=== PATIENT | male | born 1960 | race Caucasian/White ===

== ENCOUNTER 2023-04-05 09:27 | Outpatient (REF) | payer BC, SELFPAY ==
--- OUTSIDE RECORDS SUMMARY | 2023-04-05 09:32 | XMS_ITS | Patient Health Record ---
Author Name Unknown Organization [facility] Address [address] [facility] [address] [place], [place] [address] Care Team Providers Care Hand Reamer Name Role Phone ALMAZ PARSONS Primary Care Provider [phone] SINGH, RASHIDA Stewart [phone] ALLERGIES Allergen (clinical drug ingredient) Drug/Non Drug Allergy documented on EMR Reaction Allergy Type Onset Date Status No Known Drug Allergy Unknown Drug Allergy Active No Known Food Allergy Unknown Drug Allergy Active RESULTS Component Value Reference Range Notes TSH Reviewed date:10/05/2022 08:13:39 AM Interpretation: Performing Lab:[facility][id number] José Luis [id number] Jimmy Liriano MD Notes/Report: FASTING: NO FASTING:NO 0; 0; 0; 0; 0; 0 TSH 1.72 0.40-4.50 mIU/L HEMOGLOBIN A1c Reviewed date:10/05/2022 08:13:39 AM Interpretation: Performing Lab:[facility]-Bodcy1310 Kenya [id number] Jimmy Liriano MD Notes/Report: 0; 0; 0; 0; 0; 0 FASTING:NO FASTING: NO HEMOGLOBIN A1c 5.3 <5.7 % of total Hgb For the purpose of screening for the presence of diabetes: <5.7% Consistent with the absence of diabetes 5.7-6.4% Consistent with increased risk for diabetes (prediabetes) > or =6.5% Consistent with diabetes This assay result is consistent with a decreased risk of diabetes. Currently, no consensus exists regarding use of hemoglobin A1c for diagnosis of diabetes in children. According to [place] Diabetes Association (ADA) guidelines, hemoglobin A1c <7.0% represents optimal control in non- diabetic patients. Different metrics may apply to specific patient populations. Standards of Medical Care in Diabetes(ADA). HS CRP Reviewed date:10/06/2022 08:29:05 AM Interpretation: Performing Lab:[facility][id number] Brent Myers [id number] Jimmy Liriano MD Notes/Report: 0; 0; 0; 0; 0; 0 FASTING:NO FASTING: NO HS CRP 1.1 Reference Range Optimal <1.0 [place] BOJORQUEZ et al. Endocr Pract.2017;23(Suppl 2):1-87. For ages >17 Years: hs-CRP mg/L Risk According to AHA/CDC Guidelines <1.0 Lower relative cardiovascular risk. 1.0-3.0 Average relative cardiovascular risk. 3.1-10.0 Higher relative cardiovascular risk. Consider retesting in 1 to 2 weeks to exclude a benign transient elevation in the baseline CRP value secondary to infection or inflammation. >10.0 Persistent elevation, upon retesting, may be associated with infection and inflammation. CBC (INCLUDES DIFF/PLT) Reviewed date:10/05/2022 08:13:38 AM Interpretation: Performing Lab:[facility][id number] Brent Myers [id number] Jimmy Liriano MD Notes/Report: 0; 0; 0; 0; 0; 0 FASTING:NO FASTING: NO WHITE BLOOD CELL COUNT 9.3 3.8-10.8 Thousand/ uL RED BLOOD CELL COUNT 4.39 4.20-5.80 Million/uL HEMOGLOBIN 13.9 13.2-17.1 g/dL HEMATOCRIT 40.2 38.5-50.0 % MCV 91.6 80.0-100.0 fL MCH 31.7 27.0-33.0 pg MCHC 34.6 32.0-36.0 g/dL RDW 13.1 11.0-15.0 % PLATELET COUNT 314 140-400 Thousand/uL MPV 10.9 7.5-12.5 fL ABSOLUTE NEUTROPHILS 5124 8188-4790 cells/uL ABSOLUTE LYMPHOCYTES 3292 850-3900 cells/uL ABSOLUTE MONOCYTES 744 200-950 cells/uL ABSOLUTE EOSINOPHILS 84 15-500 cells/uL ABSOLUTE BASOPHILS 56 0-200 cells/uL NEUTROPHILS 55.1 LYMPHOCYTES 35.4 MONOCYTES 8.0 EOSINOPHILS 0.9 BASOPHILS 0.6 COMPREHENSIVE METABOLIC PANE L Reviewed date:10/05/2022 08:13:38 AM Interpretation: Performing Lab:[facility]Fiqla6076 Brent Myers [id number] Jimmy Liriano MD Notes/Report: 0; 0; 0; 0; 0; 0 FASTING:NO FASTING: NO GLUCOSE 71 65-139 mg/dL Non-fasting reference interval UREA NITROGEN (BUN) 19 7-25 mg/dL CREATININE 1.20 0.70-1.35 mg/dL EGFR 69 > OR = 60 mL/min/1.73m2 The eGFR is based on the CKD-EPI 2020 equation. To calculate the new eGFR from a previous Creatinine or Cystatin C result, go to https://www.kidney.org/pr ofessionals/ kdoqi/gfr%5Fcalculator BUN/CREATININE RATIO NOT APPLICABLE 6-22 (calc) SODIUM 141 135-146 mmol/L POTASSIUM 4.2 3.5-5.3 mmol/L CHLORIDE 106 98-110 mmol/L CARBON DIOXIDE 26 20-32 mmol/L CALCIUM 9.8 8.6-10.3 mg/dL PROTEIN, TOTAL 7.6 6.1-8.1 g/dL ALBUMIN 4.4 3.6-5.1 g/dL GLOBULIN 3.2 1.9-3.7 g/dL (calc) ALBUMIN/GLOBULIN RATIO 1.4 1.0-2.5 (calc) BILIRUBIN, TOTAL 0.5 0.2-1.2 mg/dL ALKALINE PHOSPHATASE 56 35-144 U/L AST 14 10-35 U/L ALT 14 9-46 U/L LIPID PANEL, STANDARD Reviewed date:10/05/2022 08:13:38 AM Interpretation: Performing Lab:[facility]Pvede1828 Brent Myers [id number] Jimmy Liriano MD Notes/Report: 0; 0; 0; 0; 0; 0 FASTING:NO FASTING: NO CHOLESTEROL, TOTAL 242 <200 mg/dL HDL CHOLESTEROL 83 > OR = 40 mg/dL TRIGLYCERIDES 73 <150 mg/dL LDL-CHOLESTEROL 142 Reference range: <100 Desirable range <100 mg/dL for primary prevention; <70 mg/dL for patients with CHD or diabetic patients with > or = 2 CHD risk factors. LDL-C is now calculated using the Magraret calculation, which is a validated novel method providing better accuracy than the Friedewald equation in the estimation of LDL-C. Rodriguez RAMOS et al. LIBERTY. 2013;310(19): 4756-8171 (http://ShopYourWorld.Meetingsbooker.com/faq/YKU990) CHOL/HDLC RATIO 2.9 <5.0 (calc) NON HDL CHOLESTEROL 159 <130 mg/dL (calc) For patients with diabetes plus 1 major ASCVD risk factor, treating to a non-HDL-C goal of <100 mg/dL (LDL-C of <70 mg/dL) is considered a therapeutic option. REASON FOR REFERRAL No Information MEDICATIONS Medication SIG (Take, Route, Fr equency, Duration) Notes Start Date End Date Status predniSONE 10 MG 4 tablet Orally Once a day for 5 days Active Ibuprofen Active SOCIAL HISTORY Tobacco Use: Social History Observation Description Date Details (start date - stop date) Never Smoker NA - NA Sex Assigned At : Social History Observation Description Sex Assigned At Male Tobacco Use/Smoking Question Answer Notes Are you a nonsmoker Alcohol Screen (Audit-C) Question Answer Notes Did you have a drink contain ing alcohol in the past year? Yes How often did you have a dri nk containing alcohol in the past year? 4 or more times a week (4 points) How many drinks did you have on a typical day when you were drinking in the past year? 1 or 2 drinks (0 point) How often did you have 6 or more drinks on one occasion in the past year? Never (0 point) Points 4 Interpretation Positive Tobacco use other than smoking: Question Answer Notes Are you an other tobacco user? No PROBLEMS Problem Type ICD Code Onset Dates Problem Status W/U Status Risk SNOMED Code Notes Problem Mixed hyperlipidemia (E78.2) Active confirmed 912800886 VITAL SIGNS Heart Rate 62 /min 10/02/2022 Temperature 98.0 degrees Fahrenheit 10/02/2022 Respiratory Rate 18 /min 10/02/2022 Blood pressure diastolic 87 mm Hg 10/02/2022 Oximetry 100 % 10/02/2022 Height-cm 170.18 cm 10/02/2022 Weight-kg 81.74 kg 10/02/2022 Height 67 in 10/02/2022 Blood pressure systolic 135 mm Hg 10/02/2022 Weight 180.2 lbs 10/02/2022 BMI 28.22 kg/m2 10/02/2022 PROCEDURES Procedure Date Ordered Date Performed Result Body Sit e Allergies Reviewed 10/02/2022 N/A Medication Review 10/02/2022 N/A Screening for depression doc umented as negative, so f/u is not required 10/02/2022 N/A BMI above normal parameters and f/u plan documented 10/02/2022 N/A Pain severity quantified- Pain present 10/02/2022 N/A Medication List Documented i n medical record 10/02/2022 N/A Falls Risk Assessment Documented 10/02/2022 N/A ALCOHOL/SUBS INTERV 15-30 MIN 10/02/2022 N/A ADVNC CARE PLAN TLK DOCD 10/02/2022 N/A FXNL STATUS ASSESSED 10/02/2022 N/A DEPRESSION SCREEN ANNUAL 10/02/2022 N/A DIAST BP 80-89 MM HG 10/02/2022 N/A SYS BP 130 - 139MM HG 10/02/2022 N/A TOBACCO NON-USER 10/02/2022 N/A TOBACCO USE ASSESSED 10/02/2022 N/A Encounters Encounter Location Date Provider Diagnosis [address] [id number] 10/02/[address] [id number] 01/19/[address] [id number] 10/05/[address] [id number] 11/02/[address] [id number] 10/02/2022 RASHIDA WINTERS Cellulitis of foot L03.119 ; History of gout Z87.39 ; Body mass index (BMI) of 28.0-28.9 in adult Z68.28 ; Encounter for screening Z13.9 and Mixed hyperlipidemia E78.2 ASSESSMENTS Encounter Date Diagnosis Assessment Notes Treatment Notes Treatment Clinical Notes 10/02/2022 History of gout (ICD-10 - Z87.39) Patient has history of gout and has been drinking beer almost daily. He was given information on low purine diet. patient swelling and pain in his foot is likely cellulitis however this could be a component of gout. we'll order uric acid blood work and treat for flare up. patient to follow up in two weeks with his primary provider. 10/02/2022 Cellulitis of foot (ICD-10 - L03.119) Cellulitis: Care Instructions material was printed. Patient has been doing yard work and open sandals mowing the grass. Denies any injury however skin to the right front lateral aspect is consistent with cellulitis. Will treat with one gram I'm Rocephin in an office today and also give course of 10 day doxycyclines. Patient instructed to go to hospital with any worsening symptoms or striking of the redness of his leg. Patient will follow up in two weeks with primary care provider after Parsons. Also have ordered routine labs and inflammatory markers. Patient and his was understanding verbal treatment plan. 10/02/2022 Body mass index (BMI) of 28.0-28.9 in adult (ICD-10 - Z68.28) Healthy lifestyle discussed with patient, including diet, vitamin supplement, exercise, non-smoking, safe sexual practices and reduction of stress. Assessment and plan reviewed with patient. 10/02/2022 Encounter for screening (ICD-10 - Z13.9) 10/02/2022 Mixed hyperlipidemia (ICD-10 - E78.2) Patient educated on importance of healthy food choices and daily exercise for lowering lipid levels. Also advised to take lipid lowering medication as advised. 10/02/2022 Other Purine-Restrict ed Diet: Care Instructions material was printed PLAN OF TREATMENT Pending Test Test Name Order Date URIC ACID 10/02/2022 EKG FOR INITIAL PREVENT EXAM 07/08/2021 TOBACCO USE ASSESSED 07/08/2021 TOBACCO USE ASSESSED 07/20/2021 TOBACCO USE ASSESSED 10/02/2022 TOBACCO NON-USER 10/02/2022 TOBACCO NON-USER 07/20/2021 TOBACCO NON-USER 07/08/2021 SYS BP 130 - 139MM HG 10/02/2022 SYST BP >/= 140 MM HG 07/08/2021 SYST BP < 130 MM HG 07/20/2021 DIAST BP 80-89 MM HG 07/08/2021 DIAST BP 80-89 MM HG 10/02/2022 DIAST BP < 80 MM HG 07/20/2021 DEPRESSION SCREEN ANNUAL 07/08/2021 DEPRESSION SCREEN ANNUAL 10/02/2022 FXNL STATUS ASSESSED 10/02/2022 ADVNC CARE PLAN TLK DOCD 10/02/2022 ALCOHOL/SUBS INTERV 15-30 MIN 10/02/2022 ALCOHOL/SUBS INTERV 15-30 MIN 07/20/2021 ALCOHOL/SUBS INTERV 15-30 MIN 07/08/2021 Falls Risk Assessment Documented 023 Medication List Documented in medical re cord 07/20/2021 Medication List Documented in medical re cord 10/02/2022 Pain severity quantified- Pain present 0 10/02/2022 Pain severity Quantified- No pain presen t 07/20/2021 Pain severity Quantified- No pain presen t 07/08/2021 BMI above normal parameters and f/u plan documented 07/20/2021 BMI above normal parameters and f/u plan documented 10/02/2022 BMI above normal parameters and f/u plan documented 07/08/2021 Screening for depression documented as n egative, so f/u is not required 10/02/2022 Screening for depression documented as n egative, so f/u is not required 07/08/2021 Medication Review 07/20/2021 Medication Review 10/02/[address] po st discharge within 30 days of discharge, discharge med list in chart 07/08/2021 Cologuard 01/14/2023 Allergies Reviewed 07/08/2021 Allergies Reviewed 07/20/2021 Allergies Reviewed 10/02/2022 Insurance Providers Payer Name Payer Address Payer Phone Subscriber Number Group Number Insured Name Patient Relationship to Insured Coverage Start Date Coverage End Date [employer] [address] [place] [address] [id number] Cecilia Ugalde Spouse - patient is the spouse of the insured [facility] [address] [place] [address] [id number] Cecilia Ugalde Spouse - patient is the spouse of the insured MEDICATIONS ADMINISTERED Medication Instructions Date of Administration Dosage Notes Rocephin 10/02/2022 1000 mg MEDICAL (GENERAL) HISTORY Medical History History ICD Code No latex allergy Surgical History Surgery Date(Month/Year) shoulder wrist Hospitalization History Reason Date(Month/Year) [facility] 06/2021
--- OUTSIDE RECORDS SUMMARY | 2023-04-05 09:32 | XMS_ITS | Patient Health Record ---
Author Name Unknown Organization [facility] Care Team Providers Care Electric Fork Operator Name Role Phone BARBARA ALLAN Unavailable [phone] Hayley Chandra Unavailable [phone] GeriZaira Unavailable [phone] FRANCES SAPPHIRE Unavailable [phone] PROBLEMS Type Condition ICD9-CM Code LYK52-CH Code Onset Dates Condition Status W/U Status Risk SNOMED Code Notes Problem Palpitations R00.2 confirmed [id number] 2 Problem Chest heaviness R07.89 confirmed 514718154 Problem Obesity, unspecified E66.9 confirmed 473824684 Problem Chest pain, unspecified type R07.9 confirmed 80307677 Problem Rheumatic heart disease, unspecified I09.9 confirmed 53536330 Problem 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 875382641 Problem Dizziness R42 confirmed [id number] ALLERGIES No Known Allergies ENCOUNTERS from 1962 to 2023-04-05 Encounter Location Date Provider Diagnosis [facility] - [place] [address] [place] [address] Jul, BARBARA ALLAN Chest pain, unspecified type R07.9 ; Palpitations R00.2 ; Chest heaviness R07.89 ; Dizziness R42 ; 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 ; Rheumatic heart disease, unspecified I09.9 and Obesity, unspecified E66.9 [facility] - [address] [place] [address] Jul, BARBARA ALLAN [facility] - [address] [facility] [place] [address] Jul, 2020 BARBARA JERRELL [facility] - [place] [place] [address] Jul, 2020 BARBARA JERRELL [facility] - [place] [place] [address] Jul, 2020 BARBARA JERRELL [facility] - [place] [place] [address] Jul, 2020 BARBARA JERRELL [facility] - [place] [address] [facility] [facility] [address] [place] [address] Jul, 2020 BARBARA JERRELL Chest pain, unspecified type R07.9 [facility] - [place] [address] [address] [facility] [address] [place] [address] Jul, 2020 SAPPHIRE ATTANTI Chest pain, unspecified type R07.9 [facility] - [place] [address] [facility] [facility] [address] [place] [address] Jul, 2020 BARBARA JERRELL Chest pain, unspecified type R07.9 ; Palpitations R00.2 ; Chest heaviness R07.89 ; Dizziness R42 and SOB (shortness of breath) on exertion R06.02 [facility] - [place] [place] [address] 15 Jun, 2021 BARBARA JERRELL [facility] - [place] [address] [place] [address] Jun, BARBARA JERRELL Chest pain, unspecified type R07.9 ; Palpitations R00.2 ; Chest heaviness R07.89 ; Dizziness R42 and SOB (shortness of breath) on exertion R06.02 SOCIAL HISTORY Tobacco Use: Social History Observation Description Date Details (start date - stop date) Never Smoker Sex Assigned At : Social History Observation Description Sex Assigned At Unknown Alcohol Screen (Audit-C) Question Answer Notes Did you have a drink contain ing alcohol in the past year? Yes Points 4 Interpretation Positive How many drinks did you have on a typical day when you were drinking in the past year? 1 or 2 (0 points) How often did you have a dri nk containing alcohol in the past year? Four or more times a week (4 points) Tobacco Use/Smoking Question Answer Notes Are you a never smoker REASON FOR REFERRAL from 1962 to 2023-04-05 Reason NO AUTH REQUIRED-Car diolite Stress 07/31/2021 NO AUTH REQUIRED-Echo 08/03/2021 no auth required-2 wk event monitor MCT (next avail)07/31/2021 OV 1mo fu 08/10/2021 Diagnosis 1 Dizziness (R42) Diagnosis 2 Chest pain, unspecif ied type (R07.9) Diagnosis 3 SOB (shortness of br eath) on exertion (R06.02) Diagnosis 4 Palpitations (R00.2) Referral Organization [facility] Referring Provider First Name [facility] Referring Provider Last Name [facility] Referring Provider Specialty Cardiology Referred Organization [facility] Referred Provider BARBARA ALLAN Referred Address [address] [place] Referred Provider Specialty Cardiology Referral Priority Routine Referral Appointment Date 2021-07-31 General Notes Meghana Berumen 07/20 2:23:00 PM >[facility]----REF#CHELLY Kennedy 07/20/2021 2:22PM Reason NR-OV 6mo fu 022 Diagnosis 1 Chest pain, unspecif ied type (R07.9) Diagnosis 2 SOB (shortness of br eath) on exertion (R06.02) Diagnosis 3 Dizziness (R42) Referral Organization [facility] Referring Provider First Name BARBARA Referring Provider Last Name [facility] Referring Provider Specialty Cardiology Referred Organization [facility] Referred Provider BARBARA ALLAN Referred Address [address] [place] [place] Referred Provider Specialty Cardiology Referral Priority Routine Referral Appointment Date 2022-07-12 VITAL SIGNS from 1960 to 2023-04-05 Weight 175 lbs Jul, Height 67 in Jul, BMI 27.41 kg/m2 Jul, Heart Rate 57 /min Jul, Oximetry 98 % Jul, Blood pressure systolic 122 mm Hg Jul, Blood pressure diastolic 70 mm Hg Jul, RESULTS from 1960 to 2023-04-05 Component Value Reference Range Notes Echocardiogram Reviewed date:09/21/2021 09:53:56 Interpretation: Performing Lab: Notes/Report: Exercise Stress Nuclear Test Reviewed date:08/03/2021 08:53:12 Interpretation: Performing Lab: Notes/Report: Event Monitor 2 weeks Reviewed date:08/03/2021 08:50:24 Interpretation: Performing Lab: Notes/Report: REASON FOR VISIT No Information MEDICAL (GENERAL) HISTORY Type Description Date Medical History Palpitations Medical History Chest pain, unspecified type Surgical History Shoulder repair-right Surgical History wrist surgery - left MENTAL STATUS No Information ASSESSMENTS Encounter Date Diagnosis Assessment Notes Treatment Notes Treatment Clinical Notes Jul, Chest pain, unspecified type (ICD-10 - R07.9) Chest Pain: Care Instructions material was printed Jul, Palpitations (ICD-10 - R00.2) Jul, Chest heaviness (ICD-10 - R07.89) Jul, Dizziness (ICD-10 - R42) Jul, Disorders of both mitral and tricuspid valves (ICD-10 - I08.1) Jul, Rheumatic heart disease, unspecified (ICD-10 - I09.9) Jul, Obesity, unspecified (ICD-10 - E66.9) Jul, Other I have made obinna beckersavanna aware of the findings of his latest cardiac work-up. I have encouraged him to continue to exercise regularly and to continue his current medications as prescribed. I will see him in follow-up in 6 months for reassessment. Jul, Chest pain, unspecified type (ICD-10 - R07.9) Jul, Palpitations (ICD-10 - R00.2) Jul, Chest heaviness (ICD-10 - R07.89) Jul, Dizziness (ICD-10 - R42) Jul, SOB (shortness of breath) on exertion (ICD-10 - R06.02) Jul, Chest pain, unspecified type (ICD-10 - R07.9) Jul, Chest pain, unspecified type (ICD-10 - R07.9) Jul, Chest pain, unspecified type (ICD-10 - R07.9) Tolerated injection well Pt has experienced no S/S or any reaction after 15 min waiting period Pt verbalized understanding of all education.. Jul, Palpitations (ICD-10 - R00.2) Jul, Chest heaviness (ICD-10 - R07.89) Jul, Dizziness (ICD-10 - R42) Jul, SOB (shortness of breath) on exertion (ICD-10 - R06.02) Jun, Chest pain, unspecified type (ICD-10 - R07.9) Chest Pain: Care Instructions material was printed Jun, Palpitations (ICD-10 - R00.2) Jun, Chest heaviness (ICD-10 - R07.89) Jun, Dizziness (ICD-10 - R42) Jun, SOB (shortness of breath) on exertion (ICD-10 - R06.02) Jun, Other I have schedule d patient for an exercise nuclear stress test study to rule out cardiac ischemia accounting for his current symptoms. I will also get a 2D echo with Doppler to evaluate his left ventricular chamber size and function and louis for segmental motion abnormalities. This will also help me evaluate his valves. After his echocardiogram, patient should be placed on an event monitor for 2 weeks to help evaluate his dizziness and palpitations for arrhythmias. I will see him in follow-up in about 1 month for reassessment. PLAN OF TREATMENT Treatment Notes Assessment Notes Clinical Notes Chest pain, unspecified type Chest Pain: Care Instructions material was printed Chest pain, unspecified type Tolerated i njection well Pt has experienced no S/S or any reaction after 15 min waiting period Pt verbalized understanding of all education.. Chest pain, unspecified type Chest Pain: Care Instructions material was printed Future Test Test Name Order Date Event Monitor 2 weeks [id number] Echocardiogram [id number] Referrals Referral Date Details 2021-07-31 2021-07-31, NO AUTH REQUIRED-Cardiolite Stress 07/31/2021 NO AUTH REQUIRED-Echo 08/03/2021 no auth required-2 wk event monitor MCT (next avail)07/31/2021 OV 1mo fu 08/10/2021, BARBARA ALLAN, [address], [place], [address], 2022-07-12 2022-07-12, NR-OV 6m o fu 07/12/2022, Russell [address], [place], [address], Insurance Providers Payer Name Payer Address Payer Phone Insured Name Patient Relationship to Insured Coverage Start Date Coverage End Date Subscriber Number Group Number [employer] [address] [facility] [id number] [place] Spouse - patient is the spouse of the insured [id number] [facility] [id number]
[2023-04-05 19:10] LABS: HCT 41.1 % (40.0-50.0); HGB 14.1 g/dL (13.5-17.5); MCH 31.8 pg (27.0-33.0); MCHC 34.3 % (32.0-36.0); MCV 93 fL (80-95); MPV 10.9 fL (8.0-11.0); Platelet Count 306 10^3/uL (130-400); RBC 4.44 10^6/uL (4.36-5.78); RDW 12.7 % (11.8-14.1); RDW-SD 43.5 fL; WBC 7.01 10^3/uL (4.4-10.8)
[2023-04-05 19:14] LABS: ESR 10 mm/hr (0-20)
[2023-04-05 19:21] LABS: Anion Gap 9.4 mmol/L (3-11); BUN 15 mg/dL (7-18); C-Reactive Protein 0.62 mg/dL (0.0-0.3); CO2 26.6 mmol/L (21.0-32.0); CREATININE 1.1 mg/dL (0.70-1.30); Calcium 9.7 mg/dL (8.5-10.1); Chloride 103 mmol/L (98-107); Estimated GFR 76.85 (mL/min/1.73m2); Glucose 96 mg/dL (74-106); Potassium 4.2 mmol/L (3.5-5.1); Sodium 139 mmol/L (136-145)
[2023-04-07 11:16] LABS: Lyme Ab w Rflx to Lyme Confirm Positive (Negative)
[2023-04-07 12:35] LABS: Lyme IgG Ab Positive (Negative); Lyme IgM Ab Positive (Negative)
[2023-04-08 23:00] LABS: Anaplasma phagocytophilum Negative (Negative); B. miyamotoi PCR Negative (Negative); Babesia divergens/MO-1 Negative (Negative); Babesia duncani Negative (Negative); Babesia microti Negative (Negative); Ehrlichia chaffeensis Negative (Negative); Ehrlichia ewingii/canis Negative (Negative); Ehrlichia muris eauclairensis Negative (Negative)
== END 2023-04-05 09:28 | disposition home or self-care (01) ==
LOC: NCHCN 09:27
PROVIDERS: PCP Nurse Practitioner Family; Visit Provider Nurse Practitioner Family
DX: M79.10 Myalgia, unspecified site (principal)
CPT/HCPCS: 80048; 85027; 85652; 86617; 87798; 86140; 86618

== ENCOUNTER 2025-01-16 12:40 | Outpatient (REF) | payer OTHER, SELFPAY ==
[2025-01-16 20:38] LABS: Calculated LDL 177 mg/dL (<100); Cholesterol 274 mg/dL (<200); HDL Cholesterol 86 mg/dL (>or=40); Triglyceride 58 mg/dL (<150)
== END 2025-01-16 12:41 | disposition home or self-care (01) ==
LOC: NCHCN 12:40
PROVIDERS: PCP Nurse Practitioner Family; Visit Provider Internal Medicine
DX: E78.5 Hyperlipidemia, unspecified (principal)
CPT/HCPCS: 80061